=== PATIENT | female | born 1950 | race Caucasian/White ===

== ENCOUNTER 2019-12-11 11:46 | Emergency (ER) | payer MEDICARE, OTHER ==
[~2019-12-11] VITALS: Ht 157.5 cm; Wt 127.3 kg
[2019-12-11 12:41] LABS: BASOPHILS % (AUTO) 1 % (0-1); EOSINOPHILS % (AUTO) 1 % (1-7); LYMPHOCYTES % (AUTO) 19 % (22-44); MEAN CORPUSCULAR HEMOGLOBIN 24.9 pg (27.0-34.8); MEAN CORPUSCULAR HGB CONC 31.3 g/dL (32.4-35.8); MEAN PLATELET VOLUME 6.8 fL (7.4-10.4); MONOCYTES % (AUTO) 7 % (2-9); NEUTROPHILS % (AUTO) 72 % (42-75); PLATELET COUNT 453 x10^3/uL (130-400); RED BLOOD COUNT 4.46 x10^6/uL (3.82-5.3); RED CELL DISTRIBUTION WIDTH 15.5 % (9.6-15.2)
[2019-12-11 12:43] LABS: MD NO
[2019-12-11 12:50] LABS: ALANINE AMINOTRANSFERASE 21 U/L (12-78); ALBUMIN 3.5 g/dL (3.4-5.0); ANION GAP 5 mmol/L (5-15); CALCIUM 9.4 mg/dL (8.5-10.1); CHLORIDE 104 mmol/L (98-107); CREATININE 1.26 mg/dL (0.55-1.02)
[2019-12-11 12:55] LABS: ALKALINE PHOSPHATASE 71 U/L (45-117); BILIRUBIN,TOTAL 0.3 mg/dL (0.2-1.0); TOTAL PROTEIN 7.9 g/dL (6.4-8.2); TROPONIN I < 0.015 ng/mL (0.000-0.045)
[2019-12-11] MEDS ORDERED: FAMOTIDINE 20 MG TABLET PO ONE (13:00)
[2019-12-11] MEDS ORDERED: ONDANSETRON ODT 8 MG PO ONE (13:00)
[2019-12-11] MEDS ORDERED: MAALOX/HYOSCYAMINE/LIDOCAINE 45 ML BTL PO ONE (13:00)
--- NOTE | 2019-12-11 13:01 | NUR ---
HEAD OF RESEARCH & INSIGHTS: PT TO ROOM FROM LOBBY
--- NOTE | 2019-12-11 13:02 | NUR ---
ASSUMED CARE OF PATIENT. PATIENT REPOERTS 06/26 CENTER CHEST PAIN SINCE LAST NIGHT. PT ALSO REPORTS VOMITING X2 DAYS. PT WAS RECENTLY TESTED FOR COVID AND HAD A NEGATIVE RESULTS. FAMILY AT BEDSIDE. NO ACUTE DISTRESS NOTED. VS STABLE. CONTROL OPERATOR ON. NSR NOTED. CALL LIGHT IN PLACE. WILL CONTINUE TO MONITOR.
--- NOTE | 2019-12-11 13:20 | NUR ---
US IN ROOM
[2019-12-11 14:27] VITALS: BP 128/66
== END 2019-12-11 14:28 | disposition home or self-care (01) ==
LOC: ED 13:04
DX: R07.89 Other chest pain (principal); R11.2 Nausea with vomiting, unspecified; R10.9 Unspecified abdominal pain; R00.0 Tachycardia, unspecified; I10 Essential (primary) hypertension; K21.9 Gastro-esophageal reflux disease without esophagitis
CPT/HCPCS: 36415; 71046; 76700; 80053; 83690; 84484; 85025; 93005; 99285; Q0162

== ENCOUNTER 2019-12-18 11:21 | Emergency (ER) | payer MEDICARE ==
[~2019-12-18] VITALS: Ht 157.5 cm; Wt 134.8 kg
[2019-12-18] MEDS ORDERED: HYDROmorphone 2 MG/ML, 1ML IVPush PRN (11:30)
[2019-12-18] MEDS ORDERED: ONDANSETRON 2MG/ML, 2ML IVPush ONE (11:30)
[2019-12-18] MEDS ORDERED: SODIUM CHLORIDE FLUSH 10ML SYR IVF ONE (11:30)
[2019-12-18] MEDS ORDERED: HYDROmorphone 2 MG/ML, 1ML ONE (12:06)
[2019-12-18] MEDS ORDERED: ONDANSETRON 2MG/ML, 2ML ONE (12:06)
--- NOTE | 2019-12-18 12:15 | NUR ---
PT SITTING UPRIGHT ON DEBBIE SCHULTZ. ERP AT BEDSIDE. DAUGHTER AT BEDSIDE. PT DENIES ANY NEEDS AT THIS TIME. ATTEMPTED TO VOID TO PROVIDE URINE SAMPLE, UNABLE AT THIS TIME. FALL PRECAUTIONS IN PLACE, CALL LIGHT AND PERSONAL BELONGINGS WITHIN REACH. WILL CONTINUE TO MONITOR.
[2019-12-18] MEDS ORDERED: SODIUM CHLORIDE 0.9% 1,000ML IVBOLUS ONE (12:30)
[2019-12-18 12:34] LABS: BASOPHILS % (AUTO) 1 % (0-1); EOSINOPHILS % (AUTO) 1 % (1-7); LYMPHOCYTES % (AUTO) 17 % (22-44); MEAN CORPUSCULAR HEMOGLOBIN 24.9 pg (27.0-34.8); MEAN CORPUSCULAR HGB CONC 31.3 g/dL (32.4-35.8); MEAN PLATELET VOLUME 6.8 fL (7.4-10.4); MONOCYTES % (AUTO) 9 % (2-9); NEUTROPHILS % (AUTO) 73 % (42-75); PLATELET COUNT 460 x10^3/uL (130-400); RED CELL DISTRIBUTION WIDTH 15.8 % (9.6-15.2)
--- NOTE | 2019-12-18 12:34 | NUR ---
BREAK RN. US AT BEDSIDE.
[2019-12-18 12:41] LABS: ALANINE AMINOTRANSFERASE 16 U/L (12-78); ALBUMIN 3.2 g/dL (3.4-5.0); ANION GAP 8 mmol/L (5-15); CALCIUM 8.7 mg/dL (8.5-10.1); CHLORIDE 106 mmol/L (98-107); CREATININE 1.76 mg/dL (0.55-1.02)
[2019-12-18 12:44] LABS: ALKALINE PHOSPHATASE 64 U/L (45-117); BILIRUBIN,TOTAL 0.3 mg/dL (0.2-1.0); TOTAL PROTEIN 7.6 g/dL (6.4-8.2)
[2019-12-18 12:58] LABS: MD SCAN
--- NOTE | 2019-12-18 13:20 | NUR ---
REPORT RECIEVED FROM ALLA GONZALEZ, ASSUMED CARE OF PT AT THIS TIME
--- NOTE | 2019-12-18 14:35 | NUR ---
PT STRAIGHT CATHED PER ERP OK FOR UA. SAMPLE WALKED TO LAB
[2019-12-18 14:52] LABS: MICROSCOPIC INDICATED
--- NOTE | 2019-12-18 16:13 | NUR ---
[facility] [place]- [phone]
[2019-12-18 17:30] VITALS: BP 109/76
== END 2019-12-18 18:07 | disposition home or self-care (01) ==
LOC: ED 12:10
DX: K80.20 Calculus of gallbladder without cholecystitis without obstruction (principal); E86.0 Dehydration; R10.11 Right upper quadrant pain; K21.9 Gastro-esophageal reflux disease without esophagitis; I10 Essential (primary) hypertension; R11.2 Nausea with vomiting, unspecified
CPT/HCPCS: 36415; 76700; 80053; 81001; 83690; 85025; 87086; 96361; 96374; 96375; 99285; J1170; J2405; J7030